=== PATIENT | female | born 1990 | race Two or more races ===

== ENCOUNTER 2018-07-25 20:55 | Emergency (ER) | payer SELFPAY ==
[~2018-07-25] VITALS: Ht 165.1 cm; Wt 53.5 kg
[~2018-07-25 20:55] MED LIST: NO REPORTABLE MEDS
--- NOTE | 2018-07-25 21:05 | NUR ---
PT BIBSELF C/O FEVER AND COUGH X4 DAYS. PT C/O MCKNIGHT AND REDNESS ON TONGUE. PT STATES "ALLERGIC TO IBUPROFEN". LAST DOSE IBUPROFEN X6 HR. PT ON MONITOR IN BED 10. PT AOX4. NAD NOTED. RESP EVEN AND UNLABORED. WILL CONTINUE TO MONITOR.
[2018-07-25 21:31] VITALS: BP 109/73
--- NOTE | 2018-07-25 21:50 | NUR ---
URINE AND INFLUENZA SWAB COLLECTED AND SENT TO LAB
--- NOTE | 2018-07-25 21:59 | NUR ---
RADIOLOGY AT BEDSIDE FOR XRAY
--- NOTE | 2018-07-25 23:00 | NUR ---
Patient discharged to home in stable condition. Written and verbal after care instructions given. Patient verbalizes understanding of instruction. PT AMBULATORY WITH STEADY GAIT.
== END 2018-07-25 23:01 | disposition home or self-care (01) ==
LOC: ER 20:56
DX: J06.9 Acute upper respiratory infection, unspecified (principal); F10.10 Alcohol abuse, uncomplicated; Y90.9 Presence of alcohol in blood, level not specified; Z88.6 Allergy status to analgesic agent
CPT/HCPCS: 71045; 84703; 87804 ×2; 99284; A4606; Z7610; 87400